=== PATIENT | male | born 1995 | race Caucasian/White ===

== ENCOUNTER 2023-12-19 15:16 | Emergency (ER) | payer OTHER ==
[2023-12-19 15:45] VITALS: BP 127/85; PULSE 73; RESP 20; TEMP 98.4; BMI 26.4
== END 2023-12-19 17:01 | disposition short-term general hospital (02) ==
LOC: FER 15:16
DX: S61.401A Unspecified open wound of right hand, initial encounter (principal); W26.8XXA Contact with other sharp object(s), not elsewhere classified, initial encounter; Y99.0 Civilian activity done for income or pay; Z20.822 Contact with and (suspected) exposure to COVID-19
CPT/HCPCS: 0241U-QW; 99285-25